=== PATIENT | female | born 1975 | race Caucasian/White ===

== ENCOUNTER 2016-05-05 08:23 | Day surgery (SDC) | payer OTHER ==
[~2016-05-05] VITALS: Ht 165.1 cm; Wt 55.0 kg
[~2016-05-05 08:23] MED LIST: ALPR1TAB7 PO; OMEP20TA86 PO
[2016-05-05] MEDS ORDERED: Propofol 10,000 mCg/mL 20 mL Inj ONE (08:24)
[2016-05-05 08:59] VITALS: BP 123/93; PULSE 71; RESP 16; O2SAT 100
[2016-05-05] MEDS ORDERED: Ondansetron 2 mg/mL 2 mL Inj IVPUSH PRN (09:50)
[2016-05-05] MEDS ORDERED: Lactated Ringer's 1,000 ML IV SCH (09:50)
[2016-05-05] MEDS ORDERED: MetoCLOpramide 5 mg/mL 2 mL Inj IVPUSH PRN (09:50)
[2016-05-05] MEDS: Lactated Ringer's 1,000 ML IV ONE ×2 (10:03→10:14)
[2016-05-05 10:20] VITALS: BP 118/77; PULSE 74; RESP 16; O2SAT 100
[2016-05-05 10:38] VITALS: BP_SYST 151; BP_SYST 152; BP_DIAS 100; BP_DIAS 99; PULSE 70; PULSE 73; RESP 16; O2SAT 100
--- NOTE | 2016-05-05 11:05 | ENDO ---
[address] [address] ENDOSCOPY PROCEDURE PATIENT: ANTONIO PATEL : 1975 MR#: [id number] ADMIT: 05/05/2016 JOB ID: [id number] DATE OF SERVICE: 05/05/2016 PRIMARY PROVIDER: CLAUDINE Pollard. PROCEDURE: 1. Esophagogastroduodenoscopy with biopsies. 2. Very limited flexible sigmoidoscopy. INDICATIONS: A 41-year-old female with recurrent nausea and vomiting of uncertain etiology. She additionally has a family history of colon cancer, and reports for colon cancer screening. EQUIPMENT: [id number]. SEDATION: Monitored anesthesia as provided by Dr. Teddy Taylor. COMPLICATIONS: None identified. BOWEL PREPARATION: Inadequate. PROCEDURE INFORMATION: After the risks and benefits were explained, written and verbal informed consent was obtained. The patient was brought into the endoscopy suite and placed into the left lateral decubitus position. Sedation was achieved using the above-stated medications with the addition of oxygen via nasal cannula. A scope was introduced into the mouth through the bite block, and advanced under direct visualization to the second portion of the duodenum. The scope was slowly withdrawn to carefully examine the mucosa for any defects or lesions. Retroflexed views were accomplished in the stomach. The stomach was decompressed. The scope removed from the patient who tolerated the procedure well. The patient was then turned around. A digital rectal examination accomplished. No significant pathology appreciated. Mild internal hemorrhoids. The scope was introduced into the rectum and advanced under direct visualization to about 10-15 cm from the anal verge, where we encountered solid stool debris. We did not advance any further as a consequence. The scope was withdrawn, the colon decompressed, the scope removed from the patient who tolerated the procedure well. FINDINGS: 1. Duodenum: No pathology identified from the bulb through to the second portion. 2. Stomach: No outlet obstruction. No ulcers. No mass lesions. The patient had a moderate macronodular diffuse gastropathy throughout. Random biopsies were acquired for exclusion of helicobacter or any other underlying histopathology. Retroflexed views of the LES disclosed a moderate sliding hiatal hernia. 3. Esophagus: The squamocolumnar junction generally correlated with the top of the gastric folds. The GEJ was at 38 cm from the incisors. There were a few very narrow tongues of salmon-colored mucosa extending up into the tubular esophagus that actually suggested the possibility of healing esophagitis rather than Price's. However, to exclude the presence of specialized intestinal metaplasia, biopsy was taken from one of these tongues for analysis. No other pathology was appreciated in the esophagus. The patient had a very relaxed lower esophageal sphincter mechanism. 4. Flexible sigmoidoscopy. Solid brown stool debris was seen just beyond the rectosigmoid junction. No distal obstructing pathology or polyps appreciated. ENDOSCOPIC DIAGNOSES: 1. Hiatal hernia. 2. Subjectively relaxed lower esophageal sphincter mechanism. 3. Healed esophagitis versus short tongues of Price's. 4. Moderate gastropathy. 5. Inadequate bowel preparation. RECOMMENDATIONS: 1. Await histopathology. 2. If helicobacter is found, it will need to be eradicated with standard triple therapy. 3. Continue anti-reflux therapy for now. 4. If Price's is identified, then repeat EGD within the next 9-12 months for confirmatory biopsies would be appropriate. 5. The patient is encouraged to take another full bowel prep with clear liquids today, and will be offered a repeat colonoscopy with anesthesia with Dr. Dominguez or myself tomorrow.
--- NOTE | 2016-05-07 14:17 | PATH ---
SURGICAL PATHOLOGY Attending Physician:Juliann Espinoza CASE STATUS: Signed Out PATIENT NAME: ANTONIO PATEL PID: [id number] : 1975 DATE COLLECTED:05/05/2016 17:29 SPECIMEN: 1: Gastric, Biopsy 2: Esophagus, Biopsy CLINICAL HISTORY: 1).GASTRIC BIOPSY 2).DISTAL ESOPHAGUS BIOPSY FINAL DIAGNOSIS: 1.GASTRIC BIOPSY: MINIMAL CHRONIC GASTRITIS INVOLVING FUNDIC MUCOSA. Negative for evidence of Helicobacter. Negative for intestinal metaplasia. Negative for dysplasia and malignancy. 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 Negative for dysplasia and malignancy. Eosinophils are not increased. ICD10 code K22.7 GROSS DESCRIPTION: The specimen is received in two formalin filled containers labeled with the patient's name. 1). The specimen is sublabeled "gastric" and consists of 2 portions of tissue which aggregate to 0.3-0.3 x 0.3 CM. The specimen is entirely submitted in cassette 1A. 2). The specimen is sublabeled "distal esophagus" and consists of a 0.2 x 0.2 x 0.1 CM portion of tissue which is entirely submitted in cassette 2A. 05/05/2016 DAC MICRO DESCRIPTION: See diagnosis. ICD-9 CODES: CPT CODES: 1: 61937 2: 77992, 22521 Electronically Signed Out Perry Hassan MD [facility] [address], [place] [address] Technical component performed at [facility], [place], [facility] [address], [place], [address]
== END 2016-05-05 23:59 | disposition home or self-care (01) ==
LOC: END 08:23
PROVIDERS: ATTEND Internal Medicine Gastroenterology
DX: Z12.11 Encounter for screening for malignant neoplasm of colon (principal); Z80.0 Family history of malignant neoplasm of digestive organs; K64.8 Other hemorrhoids; R11.2 Nausea with vomiting, unspecified; K29.50 Unspecified chronic gastritis without bleeding; K22.70 Barrett's esophagus without dysplasia; F14.21 Cocaine dependence, in remission; F17.210 Nicotine dependence, cigarettes, uncomplicated
CPT/HCPCS: 43239; 45330; J2250; J7120

== ENCOUNTER 2016-07-07 00:56 | Day surgery (SDC) | payer OTHER ==
--- NOTE | 2016-07-07 07:09 | PCM.HPANE ---
Patient Data Surgeon Admitting Provider: Attending Provider:Clem Dominguez MD Primary Care Physician:Rama Rice Other Provider:Monique Changingham Anesthesia Reason for Visit Family History Of Colon Cancer, Nausea And Vomitin Ht/WT & BMI Body Mass Index Allergies Coded Allergies: adhesive (Verified Allergy, Unknown, 05/04/16) Past Anesthesia History Anesthesia History: Denies:: Abnormal Airway, Anesthesia Reactions, Difficult Intubation, Fam Anesthesia Reaction, Fam Malignant Hypertherm, Malignant Hyperthermia Diabetes History Hx Diabetes?: No MRSA MRSA: No Medications Reported Medications Omeprazole 20 Mg Tablet.dr20 Mg PO BID Ref 0 05/01/16 Alprazolam 1 Mg Tablet1 Mg PO DAILY Ref 0 05/01/16 History HEENT History: Denies:: Abnormal Airway Difficult Intubation Dysphagia Hearing Problem Hx of Heart Problems?: No Cardiovascular History: Denies:: Congestive Heart Failure Hypertension Hx of Respiratory Problem?: No Respiratory History: Denies:: Tuberculosis Neurological History: Denies:: CVA Hx of GI Problems?: Yes Female Hx: Denies:: Currently (HYST) Musculoskeletal History: Denies:: Joint Replacement Psycho Social History: Positive for:: Anxiety (ALPRAZOLAM PRN) Denies:: Hx Depression Hx Surgeries?: Yes (HYST, APPY, BLADDER SUSP X3) Hx Any Other Health Problems?: Yes Hx Diabetes: No Hx Alcohol Use: Yes (RARELY)Hx Substance Use: Yes (multiple) Stop/Bang Risk Assessment Category Category 1A: Patient has history of documented sleep apnea, and HAS NOT received any narcotic, sedative or anesthesia administration during this stay. Category 1B: Patient has history of documented sleep apnea, and HAS received any narcotic , sedative or anesthesia administration during this stay Category 2: Patient has SUSPECTED Obstructive Sleep Apnea, and HAS received any narcotic , sedative or anesthesia administration during this stay. Category 3: Patient has SUSPECTED Obstructive Sleep Apnea and HAS NOT received narcotic, sedative or anesthesia administration during this stay. Category 4: Outpatient in Procedural Areas with known sleep apnea or who screen positive for High Risk via the STOP/BANG questionnaire. Plan Impression Patient chart reviewed, patient interviewed and anesthestic plan with risks, benefits, and alternatives discussed, and informed consent obtained. Other case cancelled no Mckenzie Mercado MD Jul 07, 2016 07:09
== END 2016-07-07 23:59 | disposition home or self-care (01) ==
LOC: END 00:56
PROVIDERS: ATTEND Internal Medicine Gastroenterology
DX: R11.2 Nausea with vomiting, unspecified (principal); Z80.0 Family history of malignant neoplasm of digestive organs; Z53.8 Procedure and treatment not carried out for other reasons